=== PATIENT | female | born 1980 | race Hispanic/Latino ===

== ENCOUNTER 2022-05-29 13:51 | Outpatient (CLI) | payer BC | END 2022-05-29 13:52 | disposition home or self-care (01) | LOC: BICMAMMO 13:51 | PROVIDERS: ATTEND Family Medicine | DX: Z12.31 Encounter for screening mammogram for malignant neoplasm of breast (principal) | CPT/HCPCS: 77063; 77067 ==

== ENCOUNTER 2023-05-15 08:38 | Outpatient (CLI) | payer OTHER | END 2023-05-15 08:39 | disposition home or self-care (01) | LOC: SCSMRI 08:38 | PROVIDERS: ATTEND Family Medicine | DX: M47.22 Other spondylosis with radiculopathy, cervical region (principal); M48.02 Spinal stenosis, cervical region | CPT/HCPCS: 72141 ==